=== PATIENT | male | born 1965 | race Caucasian/White ===

== ENCOUNTER → 2019-02-10 | Outpatient (CLI) | payer OTHER, SELFPAY ==
[2019-02-10 10:35] LABS: Anion Gap 9 (5-15); BUN 14 mg/dL (7-18); BUN/Creat Ratio 16.1 RATIO (10-20); Calcium,Total 8.8 mg/dL (8.5-10.1); Chloride 105 mmol/L (98-107); Cholesterol 200 mg/dL (200); Creatinine, Serum 0.87 mg/dL (0.70-1.30); EST Glomerular Filtration Rate 97 mL/min (>60); Est Glom Filt Rate - Afr Amer 117 mL/min (>60); Glucose 99 mg/dL (74-106); High Density Lipoprotein 46 mg/dL; PSA,Total - Annual Screen 0.26 ng/mL (0.00-4.00); Potassium 4.2 mmol/L (3.5-5.1); Sodium Level 140 mmol/L (136-145); Triglycerides 159 mg/dL; Very Low Density Lipoprotein 32 mg/dL (5-40)
== END | disposition home or self-care (01) ==
LOC: MFPLAB 09:19
PROVIDERS: Family Provider Family Medicine; PCP Family Medicine; Referring Provider Family Medicine; Visit Provider Family Medicine
DX: Z12.5 Encounter for screening for malignant neoplasm of prostate (principal); Z13.1 Encounter for screening for diabetes mellitus; Z13.220 Encounter for screening for lipoid disorders
CPT/HCPCS: 36415; 80048; 80061; 84153; G0103

== ENCOUNTER → 2020-02-16 08:49 | Outpatient (CLI) | payer OTHER, SELFPAY ==
--- NOTE | 2020-02-16 08:55 | RAD_ITS ---
STUDY: X-RAY - LEFT KNEE REASON FOR EXAM: Male, 54 years old. bilateral knee pain TECHNIQUE: 4 view(s) of the knee. COMPARISON: None. FINDINGS: Normal visualized distal femur. Normal visualized proximal tibia and fibula. Normal proximal tibiofibular articulation. There is severe degenerative arthrosis of the medial femorotibial compartment with severe joint space narrowing. Normal lateral femorotibial compartment. There is moderate degenerative arthrosis of the patellofemoral articulation. The soft tissue structures are unremarkable. RAD/Knee 4 or More Views IMPRESSION: Degenerative arthrosis with spur formation, degenerative changes in the left knee slightly more advanced than those in the right Electronically Signed: Quinn Sylvester MD at 17:27 EDT , Service support ,
--- NOTE | 2020-02-16 08:55 | RAD_ITS ---
STUDY: X-RAY - RIGHT KNEE REASON FOR EXAM: Male, 54 years old. Bilateral knee pain TECHNIQUE: 4 view(s) of the knee. COMPARISON: None. FINDINGS: Normal visualized distal femur. Normal visualized proximal tibia and fibula. Normal proximal tibiofibular articulation. There is moderate degenerative arthrosis of the medial femorotibial compartment with moderate joint space narrowing. Normal lateral femorotibial compartment. There is moderate degenerative arthrosis of the patellofemoral articulation. The soft tissue structures are unremarkable. RAD/Knee 4 or More Views IMPRESSION: Degenerative arthrosis with prominent spur formation. Electronically Signed: Quinn Sylvester MD at 17:25 EDT , Service support ,
[2020-02-16 10:38] LABS: Anion Gap 6 (5-15); BUN 12 mg/dL (7-18); BUN/Creat Ratio 13.8 RATIO (10-20); Calcium,Total 9.2 mg/dL (8.5-10.1); Chloride 106 mmol/L (98-107); Cholesterol 200 mg/dL (200); Creatinine, Serum 0.87 mg/dL (0.70-1.30); EST Glomerular Filtration Rate 97 mL/min (>60); Est Glom Filt Rate - Afr Amer 117 mL/min (>60); Glucose 94 mg/dL (74-106); High Density Lipoprotein 45 mg/dL; Potassium 4.3 mmol/L (3.5-5.1); Sodium Level 139 mmol/L (136-145); Triglycerides 197 mg/dL; Very Low Density Lipoprotein 39 mg/dL (5-40)
== END ==
PROVIDERS: PCP Family Medicine; Referring Provider Family Medicine; Visit Provider Family Medicine
DX: Z00.00 Encounter for general adult medical examination without abnormal findings (principal); Z13.1 Encounter for screening for diabetes mellitus; Z12.5 Encounter for screening for malignant neoplasm of prostate; Z13.220 Encounter for screening for lipoid disorders; M17.0 Bilateral primary osteoarthritis of knee
CPT/HCPCS: 36415; 73564; 80048; 80061; 84153; G0103

== ENCOUNTER → 2020-05-09 | Outpatient (CLI) | payer OTHER, SELFPAY ==
--- NOTE | 2020-05-09 07:18 | CT_ITS ---
STUDY: CT SCAN LOWER EXTREMITY LEFT REASON FOR EXAM: Male, 55 years old. VARUS DEFORMITY. [facility] PROTOCOL RADIATION DOSAGE (If Supplied By Facility): CTDIvol = ( 21.94 ) mGy, DLP = ( 1179.89 ) mGycm. Individualized dose optimization techniques were used for this CT.? TECHNIQUE: Multiple axial tomographic images of the left hip, left knee and left ankle joints were obtained for the [facility] protocol. COMPARISON: None. FINDINGS: Imaging of the hip joint demonstrates no significant abnormality. There is a marked degree of joint space narrowing involving the medial compartment of the knee joint with degenerative spur along the medial femoral condyle. A degenerative spur is also seen along the anterior aspect of the lateral femoral condyle. Degenerative spur is seen along the superior aspect of the patella. Small joint effusion. There is a 1.2 cm x 0.7 cm well-corticated bony density along the posterior aspect of the knee joint. This may represent a loose body. Imaging of the ankle joint was obtained. There is minimal degenerative changes along the medial aspect of the tibiotalar joint. CT/Extremity Lower without Contra IMPRESSION: Moderate degree of joint space narrowing involving the medial compartment knee joint as described. Finding suggest small loose body in the posterior aspect of the knee joint. Electronically Signed: Yovany Howell, at 10:01 EDT , Service support ,
== END | disposition home or self-care (01) ==
LOC: CT 07:17
PROVIDERS: PCP Family Medicine; Referring Provider Orthopaedic Surgery; Visit Provider Orthopaedic Surgery
DX: M21.162 Varus deformity, not elsewhere classified, left knee (principal); M17.12 Unilateral primary osteoarthritis, left knee
CPT/HCPCS: 73700

== ENCOUNTER 2020-05-28 15:49 | Observation (INO) | payer OTHER, SELFPAY ==
--- NOTE | 2020-05-18 08:34 | EKG12_ITS ---
Test Reason : PRE OP Blood Pressure : / mmHG Vent. Rate : 071 BPM Atrial Rate : 071 BPM P-R Int : 104 ms QRS Dur : 090 ms QT Int : 390 ms P-R-T Axes : 016 027 020 degrees QTc Int : 423 ms Sinus rhythm with short HI Otherwise normal ECG Confirmed by DAMASO BRIONES, VIVI ([id number]), slot editor MARIA DOLORES ANSARI ([id number]) on 05/21/2020 2:31:04 PM Referred By: Bruno Sexton Confirmed By:WILLIE PETIT MD
--- NOTE | 2020-05-18 08:36 | RAD_ITS ---
STUDY: X-RAY CHEST REASON FOR EXAM: Male, 55 years old. PRE OP KNEE REPLACEMENT -- NO CHEST COMPLAINTS OR PAST HISTORY TECHNIQUE: PA and lateral views of the chest. COMPARISON: None. FINDINGS: Hyperinflation. The lungs are clear. There is no demonstrated pleural abnormality. Normal size heart. Normal mediastinum and malaika. Normal visualized pulmonary arteries. Normal visualized aortic arch and descending thoracic aorta. There are diffuse degenerative changes of the visualized thoracic spine. Normal visualized ribs, clavicles, and shoulders. There is no demonstrated abnormality of the visualized soft tissue structures of the upper abdomen. RAD/Chest PA and Lateral IMPRESSION: Hyperinflation. The lungs are clear. Electronically Signed: Yovany Howell, at 15:44 EST , Service support ,
[2020-05-18 09:33] LABS: Absolute Lymphocyte Count 1.75 X10^3/uL (0.83-4.51); Absolute Neutrophil Count 2.6 X10^3/uL (2.0-7.7); Basophil# 0.05 X10^3/uL; Eosinophil# 0.19 X10^3/uL; Eosinophils% 3.7 % (0-5); Hematocrit 45.1 % (40-54); Hemoglobin 14.8 g/dL (13.0-16.5); Lymphocyte # 1.75 X10^3/ul (4.0); Lymphocyte % 34.4 % (19-41); Mean Corp Hgb Conc 32.8 g/dL (32-36); Mean Corpuscular Hgb 29.9 pg (27.0-32.0); Mean Corpuscular Volume 91.1 fL (80-94); Mean Platelet Vol. 10.6 fl (6.2-12.0); Monocyte# 0.53 X10^3/uL; Monocyte% 10.4 % (0-10); NRBC Flagged by Analyzer 0 % (0-5); Neutrophil # 2.55 X10^3/uL (2.7-7.7); Neutrophil % 50.3 % (47-70); Platelet Count 196 K/mm3 (150-450); RBC Distribution Width CV 12.3 % (11.6-14.6); RBC Distribution Width SD 40.7 fl (35.1-43.9); Red Blood Count 4.95 M/mm3 (4.6-6.2); White Blood Count 5.1 K/mm3 (4.4-11.0)
[2020-05-18 10:02] LABS: Anion Gap 5 (5-15); BUN 12 mg/dL (7-18); BUN/Creat Ratio 14.5 RATIO (10-20); Calcium,Total 8.9 mg/dL (8.5-10.1); Chloride 108 mmol/L (98-107); Creatinine, Serum 0.83 mg/dL (0.70-1.30); EST Glomerular Filtration Rate 102 mL/min (>60); Est Glom Filt Rate - Afr Amer 123 mL/min (>60); Glucose 90 mg/dL (74-106); Potassium 4.1 mmol/L (3.5-5.1); Sodium Level 138 mmol/L (136-145)
[2020-05-18 10:04] LABS: Magnesium 2.2 mg/dL (1.6-2.6)
[2020-05-28] VITALS (9 sets, daily range): BP systolic 88–108; BP diastolic 53–88; PULSE 61–86; RESP 16–18; TEMP 36.4–37.1; O2SAT 95–100; BMI 31.6; BMI 31.7
[2020-05-28] MEDS: Acetaminophen 500 MG Tablet 1000 MG PO ×2 (11:55→20:24)
[2020-05-28] MEDS: Celecoxib 200 MG Capsule 400 MG PO (11:55)
[2020-05-28] MEDS: Gabapentin 600 MG Tablet PO (11:55)
[2020-05-28] MEDS: Scopolamine 1mg/72hr Patch 1 PATCH TRANSDERM. (11:56)
[2020-05-28] MEDS: Lactated Ringers 1,000 ML 100 ML IV (12:14)
[2020-05-28 12:55] LABS: Bedside Glucose 68 mg/dL (70-110)
--- NOTE | 2020-05-28 13:30 | KNEE_PTH ---
PATIENT: NABILA MUNGUIA LEONELA LOC: MS3 U#:[id number] AGE/SX: 55/M ROOM: OK318 RE05/28/[address]: Dr. Bruno Sexton MD : 1965 BED: 1 DIS: 05/29/2020 SPEC #: [id number] RECD: 05/29/20 09:08 STATUS: CAITLYN REChace #: [id number] CASI: 05/28/20 13:[address]: Bruno Sexton DEPT: SURGICAL PATHOLOGY RECD BY: Darius Pa ENTERED: 05/29/20 09:54 SP TYPE: TOTAL KNEE OTHR DR: Dr. Armani Velasquez MD Tissues: Knee, NOS Procedures: Decalcification bone/plaque Surgery Specimen Level IV HEADER OPERATION: ERAS, total knee replacement robotic arm assist PRE-OP DIAGNOSIS: Left knee osteoarthritis TISSUE SUBMITTED: Bone and soft tissue left knee MICROSCOPIC DIAGNOSIS Bone and soft tissue of left knee, total knee resection: Severe degenerative joint disease. Loose body. Mild synovial hyperplasia. AM:kolby 06/01/20 MICROSCOPIC DESCRIPTION Slides are reviewed. GROSS DESCRIPTION Received is one container designated bone and soft tissue left knee. The specimen consists of multiple fragments of armstrong-yellow bone measuring in aggregate 12 x 12 x 4 cm. Also in the specimen container are multiple fragments of yellow-white soft tissue measuring in aggregate 7 x 6 x 3 cm. A piece of loose body is also noted measuring 2 x 1.5 x 1 cm. A number of bony fragments contain articular surfaces consistent with tibial plateau and femoral condyle and displaying prominent osteophyte formation, eburnation, and bone erosion. Powderer sections are submitted in two cassettes as follows: 1 - soft tissue, 2 - bone after decalcification. Cassette 2 also contains the section of the loose body. / SJ:kolby 05/29/20 TC:5 CPT: 80163, 52378
[2020-05-28] MEDS: Cefazolin 2 GM in 0.9% Normal Saline 100 ML IV (13:32)
[2020-05-28] MEDS: dexAMETHasone 10 MG/ML Vial IV (13:44)
[2020-05-28] MEDS: Lactated Ringers 1,000 ML 125 ML IV ×2 (15:00→20:23)
--- NOTE | 2020-05-28 15:51 | RAD_ITS ---
STUDY: X-RAY - LEFT KNEE REASON FOR EXAM: Male, 55 years old. Postop left total knee replacement. TECHNIQUE: 2 view(s) of the knee. COMPARISON: Left knee, 02/16/2020. FINDINGS: There is a total knee replacement. The prosthetic components are intact and articulate normally with each other. There is no evidence of loosening from the underlying bone. There is no evidence of osseous fracture or destructive osseous pathology. There is air and swelling in the anterior soft tissues with midline skin clips. RAD/Knee 1 or 2 Views IMPRESSION: Status post left total knee arthroplasty. Electronically Signed: Pino Wei DO at 20:53 EST Tel [phone], Service support ,
--- NOTE | 2020-05-28 16:10 | PRO.PCM_ITS ---
Procedure Report Date of Procedure: 05/28/20 Preoperative diagnosis: Left knee severe posttraumatic arthritis Postoperative diagnosis: Same Title of procedure : Left total knee replacement, press fit ROBBY Surgeon: Bruno Sexton MD Engineering Vice President: Carmen Meade PA-C , Vanessa CHE Anesthesia: Spinal adductor canal nerve block Anesthesiologist:Dr. Rodriguez / KAJAL Special medications: Ancef, tranexamic acid Complications: None EBL: 50 Indications for surgery: Patient is a [55-year-old [male] with a history of knee arthritis appropriately treated and failed conservative measures and wished to proceed with total knee replacement. Patient was cleared for surgery by the medical doctor and has been evaluated by the anesthesia staff Findings: Intraoperative findings showed severe arthritis of the knee. Patient underwent knee replacement using [employer] press-fit total knee components Robby robotic assisted. Size [6] femur, size [6] tibia, [35 x 10] asymmetric X3 patella, size [6 ,11 CS] X3 tibial polyethylene insert, knee was nicely balanced. Patella tracked well. Patient underwent standard wound closure in layers. Vicryl and strata fix sutures utilized followed by skin criselda. administrative library assistant, physician assistant laboratory director, was utilized throughout the entire procedure. They were vital in helping with patient positioning, holding of retractors, exposing the tissues adequately for safe completion of the procedure including cutting of the bone, helping county judge appropriate alignment and sizing of the components, implantation of the components, as well as wound closure, bandage application, and safe patient transfer. Without neurosurgical nurse practitioner, physician assistant laboratory director, surgical time would have been significantly increased, and surgical outcome could have been less optimal. Description of procedure: The patient was taken to the OR, transferred to the OR table. They were given a spinal anesthetic. Ancef was given IV preoperatively. Tranexamic acid was given IV preoperatively. Well-padded tourniquet was applied to the upper thigh of the operative leg. Nonoperative leg had a SYLVAIN hose and SCD on throughout. Operative limb was prepped padded and draped in usual orthopedic sterile fashion for the procedure. We began by injecting the pain relieving solution in the anterior superior aspect of the knee region. The limb was exsanguinated, and the tourniquet was applied to 250 mmHg. Made a midline incision through skin, subcutaneous tissue, bringing down us on the extensor mechanism. Medial parapatellar arthrotomy was carried out. Straw-colored joint fluid was evacuated. We raised a sleeve of tissue off the upper medial tibia. Resected some of the infrapatellar fat pad. We remove degenerative medial and lateral meniscus. Removed bone spurs from about the patella. We removed tissue off the anterior aspect of the distal femur. Patella was translated laterally and/or everted as needed throughout the procedure. ACL was resected. PCL was preserved. Collateral ligaments were preserved. Physician placed the retractors and assistant laboratory director held retractors protecting above ligaments throughout the procedure. Patella was everted. Measured. Appropriate resection was carried out leaving us between a 13 and 15 mm thick patella. Metal plate was applied. Pins were placed in the femur and tibia at appropriate locations being bicortical. Check pin was placed in the distal femur and upper tibia at appropriate location. [place] robot was appropriately prepared femur then tibia. Knee was appropriately stressed in 90 degrees of flexion as well as in extension. Robot was appropriately manipulated to allow for approximately 19 to 21 mm of flexion and extension gap. Good sizing and alignment of components was noted on computer. Robotic cuts were carried out cutting the upper tibia first, followed by femoral cuts. Engineering Vice President help with retraction and protecting soft tissues throughout. Bone fragments were removed. we then sized off the upper tibia with the help of the assistant laboratory director. We then checked flexion extension gaps finding them to be adequate and equal. Tibial trial with plastic insert was inserted. Next the distal femoral trial was applied. Tibial tray was allowed to freefloat with a 9 mm insert. Knee was flexed and extended an external align ment guide is utilized. Tibial trial was pinned in place. Drill holes were placed into the distal femoral trial and it was removed. Punch was used on the upper tibial component and that was removed. The sclerotic bone was softened with a sharp pin. Bone spurs had been removed from the posterior medial and posterior lateral aspect of the femur while the assistant laboratory director lifted up on the distal femur and exposed each compartment. Patella was everted and measured. Patella was sized. Clamp was utilized. 3 drill holes were placed through the clamp held by the assistant laboratory director. Trial patella was placed and removed. Bleeding was controlled at the back of the knee with the bovey. Posterior knee soft tissues were carefully injected with pain relieving solution. Components were checked and open. . The bony surfaces cleaned and dried. Tibia, femur, patella press-fit into position. Tibial insert was placed just before placing the femur. Engineering Vice President held retractors exposing the bony surfaces of the tibia and femur which were hammered in position. Patella clamped into position.balancing was again checked with the computer. Checkpoints and femoral and tibial pins removed. we thoroughly irrigated and debrided the knee. Bleeding controlled with the Bovie. Knee was again thoroughly irrigated. Irresept solution utilized. Patella noted to track nicely. We repaired the arthrotomy with a combination of #1 Vicryl and #2 strata fix. We did a mid layer of 1 Vicryl and #0 strata fix running. Criselda were utilized on the incision as well as pin sites. Mepilex dressing applied. SYLVAIN hose and SCDs applied. Patient was awoken from their anesthetic, transferred back to their own bed and recovery room in satisfactory condition. Second dose of IV Tranexamic acid was given while closing wound. Patient was admitted, appropriate IV antibiotic to be utilized as well as medication for DVT prevention. Hopeful discharge tomorrow. Physical therapy will be consulted. Ancef was used 2 g IV preoperatively. Xarelto will be used for DVT prevention 10 mg daily This note was generated with Octmami dictation software. It may contain incorrect words, spelling, and punctuation that were not noted in checking the note before signing.
[2020-05-28] MEDS: Cefazolin 1 GM/50 ML BAG IV (22:33)
[2020-05-28] MEDS: Senna/Docusate Sodium 1 Tablet 2 TABLET PO (22:33)
[2020-05-29 02:41] VITALS: BP 102/66; PULSE 93; RESP 18; TEMP 36.4; O2SAT 95
[2020-05-29] MEDS: oxyCODONE 5 MG Tablet PO ×3 (02:42→11:29)
[2020-05-29] MEDS: Acetaminophen 500 MG Tablet 1000 MG PO ×2 (02:59→11:28)
[2020-05-29 06:03] LABS: Hematocrit 39.7 % (40-54); Hemoglobin 13.2 g/dL (13.0-16.5); Mean Corp Hgb Conc 33.2 g/dL (32-36); Mean Corpuscular Hgb 30.3 pg (27.0-32.0); Mean Corpuscular Volume 91.1 fL (80-94); Platelet Count 197 K/mm3 (150-450); Red Blood Count 4.36 M/mm3 (4.6-6.2); White Blood Count 14.2 K/mm3 (4.4-11.0)
[2020-05-29 06:20] VITALS: BP 99/58; PULSE 72; RESP 16; TEMP 36.4; O2SAT 96
[2020-05-29] MEDS: Cefazolin 1 GM/50 ML BAG IV (06:25)
[2020-05-29] MEDS: Rivaroxaban 10 MG Tablet PO (06:25)
--- NOTE | 2020-05-29 07:01 | PCM.PN.ORT ---
Subjective: Patient is postoperative day #1 from left total knee replacement. He is feeling okay. He states his pain is 5 or 6 out of 10. He feels it is tolerable. He has recently taken a pain pill. He denies chest pain or shortness of breath. No productive cough. Denies calf pain. He is planning on discharge to home later today after therapy. Objective: Patient is speaking easily in normal sentences. His left knee bandages on clean and dry. Adhesive bandage has no blood obvious. His knee motion is 0-60 degrees. On the left. Full range of motion on the right. No calf pain or swelling bilaterally. Negative Homans' sign bilaterally. He is able to do a straight leg raise bilaterally. He has good active plantar flexion dorsiflexion toes and ankles. Distal pulses are intact. Normal sensation. Clinically left knee is well aligned and stable. Laboratory work and vital signs reviewed X-rays of the left knee reviewed showing a press-fit total knee replacement in good position without obvious loosening failure or fracture. Good alignment of the left knee. - Physical Exam Vitals/I&O's: Vital Signs Temp Pulse Resp BP Pulse Ox 97.6 F L 72 16 99/58 L 96 05/29/20 06:20 05/29/20 06:20 05/29/20 06:20 05/29/20 06:20 05/29/20 06:20 Oxygen Flow Rate (L/min) 6 Oxygen Delivery Method Room Air Weight: 108.7 kg Body Mass Index (BMI) 31.7 Intake and Output for Last 24 Hours 05/27/20 05/28/20 05/29/20 23:59 23:59 23:59 Intake Total 3630.25 / 3630.25 1406.67 / 1406.67 Output Total 400 / 400 600 / 600 Balance 3230.25 / 3230.25 806.67 / 806.67 Laboratory Results 05/28/20 11:52: POC Glucose 68 L 05/29/20 05:10: WBC 14.2 H, RBC 4.36 L, Hgb 13.2, Hct 39.7 L, MCV 91.1, MCH 30.3, MCHC 33.2, RDW Std Deviation 40.0, RDW Coeff of Memo 12.0, Plt Count 197, MPV 11.0 Current Medications Acetaminophen (Acetaminophen 500 Mg Tablet) 1,000 mg PO Q8H [facility] Last Admin: 05/29/20 02:59 Dose: 1,000 mg Documented by: Dexamethasone Sodium Phosphate (Dexamethasone 10 Mg/Ml Vial) 10 mg IV X1 ONE Stop: 05/29/20 08:01 Sodium Chloride () 250 mls @ 15 mls/hr IV .[id number] PRN PRN Reason: Saline Flush Sodium Chloride () 250 mls @ 15 mls/hr IV .[id number] PRN PRN Reason: Additional IVPB Infusion Morphine Sulfate (Morphine 2 Mg/Ml Syringe) 2 - 4 mg IV Q2H PRN PRN PRN Reason: Pain Score 6-10 Ondansetron HCl (Ondansetron 4 Mg/2 Ml Vial) 4 mg IV Q8H PRN PRN PRN Reason: NAUSEA Oxycodone HCl (Oxycodone 5 Mg Tablet) 5 - 10 mg PO Q4H PRN PRN PRN Reason: Pain Score 4-10 Last Admin: 05/29/20 06:33 Dose: 10 mg Documented by: Rivaroxaban (Rivaroxaban 10 Mg Tablet) 10 mg PO DAILY@0600 [facility] Last Admin: 05/29/20 06:25 Dose: 10 mg Documented by: Senna/Docusate Sodium (Senna/Docusate Sodium 1 Tablet) 2 tablet PO BID [facility] Last Admin: 05/28/20 22:33 Dose: 2 tablet Documented by: Sodium Chloride (0.9% Saline Lock 10 Ml Syringe) 10 - 40 ml IV UD PRN PRN Reason: SALINE FLUSH Medical Necessity - Tobacco Use Smoking Status: Never smoker Tobacco Use: Non-smoker Assessment/Plan His diagnosis and treatment options regarding his left knee replacement discussed with him at length. Recommended upright position and incentive spirometer use. Recommended ice to the left knee. Left knee range of motion multiple times a day. Full weightbearing. Continue with oxycodone and Tylenol for pain. Prescription appropriate for his knee replacement will be given. Continue Xarelto for a total of 1 week for DVT prevention followed by aspirin 81 mg twice a day for 3 weeks stool softener as needed to prevent constipation. Therapy as needed. Follow-up in the office as scheduled. Procedures: Left total knee replacement
[2020-05-29] MEDS: 0.9% Saline Lock 10 ML Syringe IV ×2 (07:05→08:43)
--- NOTE | 2020-05-29 07:17 | DCINST_ITS ---
Discharge Diet: No Restrictions Discharge Activity: May Not Drive, May not drive while taking narcotic pain medications., Use Walker May shower in (days): 2 - Okay to shower over adhesive bandage Ice area for (Minutes): 20 - Ice area for 20 minutes each hour while awake Weight Bearing Status: Weight bearing as tolerated Keep extremity elevated above heart level: Operative Extremity Call your doctor if your incision/area has: Continuous Slow Oozing, Sudden Increased Bleeding, Increased Pain/ Swelling, Increased Redness, Foul Smelling Discharge Call your doctor if you observe: Fever of 101 or Higher, Coldness, Increased Pain, Numbness or Tingling, Change in Color, Inability to have a bowel movement, Shortness of breath, Chest pain, Calf discomfort, Uncontrolled pain Remove Dressing in (days):: 5 Cleanse incision/area with: Soap & Water Additional Dressing/Incision Instructions:: See with the [facility] discharge instruction sheet Allergies/Adverse Reactions: Allergies No Known Allergies Allergy (Verified 05/14/20 08:18) Medications to take at Discharge Acetaminophen [Tylenol] 1,000 mg PO Q8H #60 tab 05/29/20 Oxycodone [Oxyir] 5 - 10 mg PO Q4H PRN PRN 7 Days #56 tab 05/29/20 Rivaroxaban [Xarelto] 10 mg PO DAILY@0600 #6 tab 05/29/20 Senna/Docusate Sodium [Senokot-S] 2 tab PO BID #30 tab 05/29/20 The following prescriptions were given: Oxycodone [Oxyir] 5 - 10 mg PO Q4H PRN PRN 7 Days #56 tab PRN Reason: Pain Score 4-10 Prescription Printed Senna/Docusate Sodium [Senokot-S] 2 tab PO BID #30 tab Prescription Printed Acetaminophen [Tylenol] 1,000 mg PO Q8H #60 tab Prescription Printed Rivaroxaban [Xarelto] 10 mg PO DAILY@0600 #6 tab Prescription Printed Primary Care Physician: Evelio Velasquez MD [Primary Care Provider] - Test Results: Test results from this visit will be discussed in further detail at your follow- up appointment, if applicable.
[2020-05-29 08:39] VITALS: BP 103/49; PULSE 86; RESP 18; TEMP 36.6; O2SAT 97
[2020-05-29] MEDS: Senna/Docusate Sodium 1 Tablet 2 TABLET PO (08:43)
[2020-05-29] MEDS: dexAMETHasone 10 MG/ML Vial IV (08:43)
--- NOTE | 2020-05-29 10:10 | CASEMGMT ---
LAURA ORTEGA Face to Face with patient for initial transition planning/care coordination assessment. RN CM introduced self and role at [facility]. Patient sitting in chair, alert and oriented. Patient willing to participate in assessment and is able to answer all questions appropriately. Care providers, pharmacy, and demographics verified. Patient wishes to discharge home and is setup with [facility] for outpatient therapy. Patient states he has no further needs or concerns at this time. CM to follow for discharge planning needs that may arise. PCP: Ron Specialists: Bruno Sexton [facility]erred [facility]acy: [facility] but would like [facility] retail at discharge. Insurance: MMO Prescription Benefit: yes Living Will/HPOA: yes, Abigail Aguilera LNOK: Living Arrangements: Patient lives with in a single story home with 3 steps and railing to enter the home. Patient states he was independent at home prior to surgery. Transportation: DME/C: Patient states he has walker at home. Patient is scheduled for outpatient therapy at [facility] on the at 830am. Disposition Plan: Patient to discharge home with outpatient therapy, family support, and follow-up plans in place. Cindy ALLEN, RN, CM
[2020-05-29 10:20] VITALS: PULSE 60
--- NOTE | 2020-05-29 11:33 | PHA.DC.MC ---
Pharmacy Service has performed discharge medication reconciliation and counseling for this patient. 1. ACETAMINOPHEN 1000MG PO Q8H 2. OXYCODONE 5-10MG PO Q4H PRN PAIN 4-10 X 7 DAYS 3. RIVAROXABAN 10MG PO DAILY X 6 DAYS 4. SENNA/DOCUSATE 2T PO BID The patient's discharge medication list was reviewed for discrepancies and discrepancies were resolved. Home Medications Acetaminophen [Tylenol] 1,000 mg PO Q8H #60 tab 05/29/20 Oxycodone [Oxyir] 5 - 10 mg PO Q4H PRN PRN 7 Days #56 tab 05/29/20 Rivaroxaban [Xarelto] 10 mg PO DAILY@0600 #6 tab 05/29/20 Senna/Docusate Sodium [Senokot-S] 2 tab PO BID #30 tab 05/29/20 The patient was counseled on the following discharge medications and changes in medications for homegoing were reviewed. The Reason for Use, instructions for use, and potential side effects were reviewed for all new medications. The patient's questions regarding all of their medications were answered. The patient was able to verbally demonstrate an understanding of their discharge medications.
[2020-05-29 14:30] VITALS: BP 118/73; PULSE 87; RESP 18; TEMP 36.7; O2SAT 97
== END 2020-05-29 15:22 | disposition home or self-care (01) ==
LOC: SDC 16:02 → MS3 05-29 08:02
PROVIDERS: Anesthesiology; Admitting Provider Orthopaedic Surgery; PCP Family Medicine; Referring Provider Orthopaedic Surgery; Visit Provider Orthopaedic Surgery
PROC: 0SRD0JZ Replacement of Left Knee Joint with Synthetic Substitute, Open Approach (ICD-10-PCS; CPT 27447; principal; 2020-05-28 13:10)
DX: M17.12 Unilateral primary osteoarthritis, left knee (principal); Z20.828 Contact with and (suspected) exposure to other viral communicable diseases; E66.9 Obesity, unspecified
CPT/HCPCS: 01400; 27447; 64447; S2900; 36415; 71046; 73560; 80048; 82962; 83735; 85025; 85027; 87081; 87426; 88305; 88311; 93005; 96361; 96365; 96366; 96375; 97110; 97162; 97166; 97530; 97535; 99218; C1776; C9803; J7120; A4216; G0378; G0379; J2405

== ENCOUNTER 2024-05-23 15:33 | Emergency (ER) | payer OTHER, SELFPAY ==
[2024-05-23 15:35] VITALS: BP 160/87; PULSE 108; RESP 16; TEMP 36.4; O2SAT 99; BMI 34.0
[2024-05-23 16:56] VITALS: BP 134/74; PULSE 87; RESP 16; TEMP 36.1; O2SAT 99
== END 2024-05-23 16:58 | disposition home or self-care (01) ==
PROVIDERS: Emergency Provider Emergency Medicine; PCP Family Medicine; Visit Provider Emergency Medicine
DX: S43.51XA Sprain of right acromioclavicular joint, initial encounter (principal); M19.011 Primary osteoarthritis, right shoulder; W22.01XA Walked into wall, initial encounter
CPT/HCPCS: 73030; 99282

== ENCOUNTER → 2024-05-30 | Outpatient (CLI) | payer OTHER, SELFPAY ==
--- NOTE | 2024-05-30 07:50 | CT_ITS ---
CT RIGHT LOWER EXTREMITY WITH 3-D IMAGING CLINICAL INDICATION: PAIN IN RIGHT KNEE.[facility] protocol. TECHNIQUE: Axial CT images of the RIGHT lower extremity was performed without IV contrast material. Coronal and sagittal reformats were provided. The protocol utilizes one or more of the following dose reduction techniques: automated exposure control, adjustment of mA and/or kV according to patient size,and/or use of iterative reconstruction technique. RADIATION DOSAGE (If Supplied By Facility): CTDIvol = ( 18.76 ) mGy, DLP = ( 1511.24 ) mGycm COMPARISON: No relevant prior comparison study available FINDINGS: Bones: Imaging of the right hip joint was obtained. There is a mild degree of the joint space narrowing of the right hip joint. Mild degree of subchondral sclerosis in the right femoral head. Imaging of the right knee joint was obtained. There is a marked degree of joint space narrowing with bony spur along the medial and lateral distal femoral condyles. Moderate degree of joint space narrowing of the femoral patellar joint with evidence of a large bony spurs. Tiny well-corticated bony fragments are seen along the posterior aspect of the knee joint in the popliteal region suggestive of joint space. Imaging of the ankle joint was obtained. No significant abnormality is seen. Soft Tissues: The deep soft tissue structures are unremarkable. The superficial soft tissues are unremarkable without evidence of edema, hematoma, or foreign body. CT/Extremity Lower without Contra IMPRESSION: Marked degree of joint space narrowing involving the medial compartment of knee joint as well as moderate degree of joint space narrowing and spur formation of the patellofemoral joint. Electronically Signed: Yovany Howell MD at 14:20 EST ,
== END | disposition home or self-care (01) ==
LOC: CT 07:45
PROVIDERS: PCP Family Medicine; Referring Provider Orthopaedic Surgery; Visit Provider Orthopaedic Surgery
DX: M17.31 Unilateral post-traumatic osteoarthritis, right knee (principal); M25.561 Pain in right knee
CPT/HCPCS: 73700

== ENCOUNTER 2024-07-28 14:14 | Observation (INO) | payer OTHER, SELFPAY ==
--- NOTE | 2024-07-12 06:40 | RAD_ITS ---
STUDY: X-RAY CHEST REASON FOR EXAM: Male, 59 years old. PREOP TECHNIQUE: PA and lateral views of the chest. COMPARISON: 05/18/2020 FINDINGS: The lungs are clear and expanded. There is no demonstrated pleural abnormality. Normal size heart. Normal mediastinum and malaika. Normal visualized pulmonary arteries. Normal visualized aortic arch and descending thoracic aorta. Normal visualized thoracic spine. Normal visualized ribs, clavicles, and shoulders. There is no demonstrated abnormality of the visualized soft tissue structures of the upper abdomen. RAD/Chest PA and Lateral IMPRESSION: Normal x-ray examination of the chest. Electronically Signed: Dario Richardson MD at 17:20 EST ,
--- NOTE | 2024-07-12 06:44 | EKG12_ITS ---
Test Reason : PRE OP Blood Pressure : */* mmHG Vent. Rate : 73 BPM Atrial Rate : 73 BPM P-R Int : 120 ms QRS Dur : 90 ms QT Int : 372 ms P-R-T Axes : 21 22 21 degrees QTcB Int : 409 ms Normal sinus rhythm Normal ECG When compared with ECG of 18-May-2020 08:54, No significant change was found Confirmed by KAREN BRIONES, SUNNI ([id number]), story editor SAMMIE GOLDSTEIN ([id number]) on 07/12/2024 9:16:21 AM Referred By: Bruno Sexton Confirmed By: SUNNI JONES MD
[2024-07-12 07:27] LABS: Hematocrit 43.7 % (40-54); Hemoglobin 14.9 g/dL (13.0-16.5); Mean Corp Hgb Conc 34.1 g/dL (32-36); Mean Corpuscular Volume 87.9 fL (80-94); Mean Platelet Vol. 10.5 fl (6.2-12.0); Platelet Count 187 K/mm3 (150-450); RBC Distribution Width CV 12.2 % (11.6-14.6); RBC Distribution Width SD 39.3 fl (35.1-43.9); Red Blood Count 4.97 M/mm3 (4.6-6.2); White Blood Count 5.3 K/mm3 (4.4-11.0)
[2024-07-12 08:15] LABS: Anion Gap 7 (5-15); BUN 12 mg/dL (7-18); BUN/Creat Ratio 14.1 RATIO (10-20); Calcium,Total 8.8 mg/dL (8.5-10.1); Chloride 105 mmol/L (98-107); Creatinine, Serum 0.85 mg/dL (0.70-1.30); EST Glomerular Filtration Rate 97 mL/min (>60); Est Glom Filt Rate - Afr Amer 118 mL/min (>60); Glucose 103 mg/dL (74-106); Magnesium 2.2 mg/dL (1.6-2.6); Potassium 4.3 mmol/L (3.5-5.1); Sodium Level 137 mmol/L (136-145)
[2024-07-28] VITALS (12 sets, daily range): BP systolic 109–144; BP diastolic 65–83; PULSE 68–92; RESP 16–18; TEMP 36.1–36.9; O2SAT 94–100; BMI 33.0
--- NOTE | 2024-07-28 11:40 | PCM.PRE.AN2 ---
ASA Classification* ASA Classification ASA Classification: 2 Assessment & Plan Anesthesia* Anesthesia Assessment Anesthesia Assessment: Discussed sedation and/or anesthesia options, risks, benefits, and alternatives with patient/parents/legal guardian/POA. Questions invited. The patient/parents/legal guardian/POA seems to understand and agrees to proceed with anesthesia plan. Reviewed the physical assessment, medical history, allergy history and patient home medications list prior to surgery/procedure/anesthetic and documented any changes. Performed airway and anesthesia risk assessments. Anesthesia Type Anesthesia Type: Spinal and Block Anesthesia Focused Assessment* Airway Assessment Mouth opens: >3 cm Mallampati Score: II Focused Labs Anesthesia Preop lab: CBC WBC 5.3 K/mm3 (4.4-11.0) 07/12/24 06:58 RBC 4.97 M/mm3 (4.6-6.2) 07/12/24 06:58 Hgb 14.9 g/dL (13.0-16.5) 07/12/24 06:58 Hct 43.7 % (40-54) 07/12/24 06:58 Plt Count 187 K/mm3 (150-450) 07/12/24 06:58 CHEMISTRY Potassium 4.3 mmol/L (3.5-5.1) 07/12/24 06:58 Sodium 137 mmol/L (136-145) 07/12/24 06:58 Magnesium 2.2 mg/dL (1.6-2.6) 07/12/24 06:58 BUN 12 mg/dL (7-18) 07/12/24 06:58 Creatinine 0.85 mg/dL (0.70-1.30) 07/12/24 06:58 Glucose 103 mg/dL (74-106) 07/12/24 06:58 POC Glucose 68 mg/dL (70-110) L 05/28/20 11:52 COAG Pre-Assessment Diagnosis/Proposed Procedure Planned Operative Procedure(s): (R) Total Knee Replacement Anesthesia History 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 When Was Last Pacemaker Check QUESTION #4 FULL TEXT: You/Your Family Experience fever (hyperthermia) with Anesthesia Last Oral Intake Last Oral intake: Last Oral Intake NPO since Meds taken in AM with sips of water? Meds patient instructed to take am of surgery PONV PONV - farm truck driver: PONV - farm truck driver Female No 07/04/24 11:48 HX of Motion Sickness No 07/04/24 11:48 HX of N/V After Surgery No 07/04/24 11:48 Non-Smoker Yes 07/04/24 11:48 Duration of Surgery greater Yes 07/04/24 11:48 than 60 minutes Number of Risk Factors 2 07/04/24 11:48 PONV Score Moderate Risk 07/04/24 11:48 Height & Weight Height & Weight: Anesthesia: Height & Weight Height 6 ft 05/23/24 15:35 Respiratory Assessment Respiratory Assessment - farm truck driver: Respiratory Tract Infection Hx - farm truck driver Hx Respiratory Tract Infection No 07/04/24 11:48 STOP Sleep Apnea STOP Sleep Apnea - farm truck driver: STOP Sleep Apnea - farm truck driver Hx Hypertension No 07/04/24 11:48 Hx Sleep Apnea No 07/04/24 11:48 CPAP BIPAP Do you snore loudly (louder Yes 07/04/24 11:48 than talking or can be heard Do you often feel tired/ No 07/04/24 11:48 fatigued/ sleepy during daytime? Has anyone observed you stop No 07/04/24 11:48 breathing during sleep? STOP Results Negative 07/04/24 11:48 QUESTION #5 FULL TEXT : Do you snore loudly (louder than talking or can be heard through closed doors)? 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 Specify any problems Hx of Preganancy in last 3 N/A 07/04/24 11:48 Months Nurse Filling Out Transfusion MGRIFFITH 07/04/24 11:48 & Questions: Date: 07/04/24 07/04/24 11:48 Time: 11:50 07/04/24 11:48 Patient unable to answer at this time (ie. confused, unrespo /Reproduction History /Reproductive History - farm truck driver: /Reproductive Hx- farm truck driver Hx Now Gestational Age (in weeks): EDC: Hx Hx Para Hx Section SAB Active Medications Active Medications: Current Medications Generic Name Dose Route Start Last Admin Trade Name Freq PRN Reason Stop Dose Admin Acetaminophen 1,000 mg 07/28/24 13:30 Acetaminophen 500 Mg Tablet PO 07/28/24 13:31 X1 ONE Celecoxib 400 mg 07/28/24 13:30 Celecoxib 200 Mg Capsule PO 07/28/24 13:31 X1 ONE Sodium Chloride 77.4 ml/ 0 ml 07/28/24 13:30 Ropivacaine 200 mg/ OPERA.SITE 07/28/24 13:31 Epinephrine HCl 0.6 mg/ X1 ONE Ketorolac Tromethamine 30 mg/ Morphine Sulfate 5 mg Dexamethasone Sodium Phosphate 10 mg 07/28/24 13:30 Dexamethasone 10 Mg/Ml Vial IV 07/28/24 13:31 X1 ONE Gabapentin 600 mg 07/28/24 13:30 Gabapentin 600 Mg Tablet PO 07/28/24 13:31 X1 ONE Tranexamic Acid 1,000 mg/ 110 mls @ 660 mls/hr 07/28/24 13:30 Sodium Chloride IV 07/28/24 13:39 X1 ONE Tranexamic Acid 1,000 mg/ 110 mls @ 660 mls/hr 07/28/24 14:30 Sodium Chloride IV 07/28/24 14:39 X1 ONE Magnesium Sulfate 1 gm/ 102 mls @ 408 mls/hr 07/28/24 13:30 Dextrose IV 07/28/24 13:44 X1 ONE Cefazolin Sodium 2 gm/ N/A 20 mls @ 400 mls/hr 07/28/24 13:30 IV 07/28/24 13:32 PREOP ONE Sodium Chloride 1,000 mls @ 15 mls/hr 07/28/24 11:25 IV 08/03/24 00:44 .Q48H [facility] Protocol Insulin Human Lispro 1 - 6 unit 07/28/24 13:30 Insulin Lispro 100 Unit/Ml Insuln.Pen SC 07/28/24 19:30 Q4H PRN PRN BG>/= 180, SEE PROTOCOL Protocol PFSH Medical History Alcohol use Arthritis Heartburn Shortness of breath on exertion Non-smoker History of stress test Home Medications ?Medication ?Instructions ?Recorded ?Last Taken ?Type SIMPLY FRUIT 2 cap PO DAILY 07/04/24 Unknown History SIMPLY VEGETABLE 2 cap PO DAILY 07/04/24 Unknown History acetaminophen 500 mg tablet 1,000 mg PO Q8H PRN pain 07/04/24 Unknown History ibuprofen 400 mg tablet (IBU) 400 mg PO Q8H PRN pain 07/04/24 Unknown History Allergy/AdvReac Type Severity Reaction Status Date / Time amoxicillin Allergy Mild Hives Verified 07/04/24 11:43 bacitracin (From Neosporin Allergy Itching Verified 07/04/24 11:57 ([id number])) neomycin (From Neosporin Allergy Itching Verified 07/04/24 11:57 ([id number])) polymyxin B (From Neosporin Allergy Itching Verified 07/04/24 11:57 ([id number])) Surgical History History of surgical removal of ganglion cyst History of total left knee replacement (TKR) Hx of appendectomy Social History Smoking Status: Never smoker alcohol intake: current alcohol intake frequency: a few times a month Alcohol type: beer Review of Systems (Anesthesia) ROS Narrative System reviewed and no additional complaints, except as documented.
[2024-07-28] MEDS: Magnesium 1 GM over 15 mins IV (12:36)
[2024-07-28] MEDS: 0.9% Normal Saline (1000mL) 1,000 ML 15 ML IV (12:37)
[2024-07-28] MEDS: Acetaminophen 500 MG Tablet 1000 MG PO ×2 (12:38→21:57)
[2024-07-28] MEDS: Celecoxib 200 MG Capsule 400 MG PO (12:38)
[2024-07-28] MEDS: Gabapentin 600 MG Tablet PO (12:38)
--- NOTE | 2024-07-28 13:30 | KNEE_PTH ---
PATIENT: NABILA MUNGUIA LOC: MS3 U#:[id number] AGE/SX: 59/M [place] [facility] [place]: Dr. Bruno Sexton MD : 1965 BED: 1 DIS: 07/29/2024 SPEC #: [id number] RECD: 07/28/24 17:43 STATUS: CAITLYN REChace #: [id number] CASI: 07/28/24 13:[address]: Bruno Sexton DEPT: SURGICAL PATHOLOGY RECD BY: Darius Pa ENTERED: 07/29/24 07:10 SP TYPE: TOTAL KNEE OTHR DR: Dr. Armani Velasquez MD Tissues: Knee, NOS Procedures: Decalcification bone/plaque Surgery Specimen Level IV HEADER OPERATION: Right total knee replacement PRE-OP DIAGNOSIS: Right knee grade IV posttraumatic arthritis TISSUE SUBMITTED: Right knee bone and tissue MICROSCOPIC DIAGNOSIS Bone and soft tissue, right knee, total knee replacement/resection: Bone and overlying cartilage showing changes consistent with degenerative joint disease. PW.mr 08/03/2024 MICROSCOPIC DESCRIPTION Slides are reviewed. GROSS DESCRIPTION Received is one container designated bone and soft tissue right knee. The specimen consists of multiple fragments of armstrong-yellow bone measuring in aggregate 11 x 11 x 4 cm. No soft tissue is identified. A number of bony fragments contain articular surfaces consistent with tibial plateau and femoral condyle and displaying prominent osteophyte formation, eburnation and bone erosion. Multi Craft Maintenance Technician sections are submitted in one cassette after decalcification. / EMILEE.mr 07/29/2024 TC:5 CPT: 34162, 91811
[2024-07-28 14:30] LABS: Bedside Glucose 62 mg/dL (74-106)
[2024-07-28] MEDS: Cefazolin 2 GM in Syringe IV (14:30)
[2024-07-28] MEDS: TXA 1000mg in NS100 100ml (IVPB at Incision) 660 MG IV (14:33)
[2024-07-28] MEDS: dexAMETHasone 10 MG/ML Vial IV (14:35)
--- NOTE | 2024-07-28 15:57 | OP.PCM_ITS ---
Problems Associated Problem List Diagnoses (1) Post-traumatic osteoarthritis of right knee: Operative Report (Standard) Operative Information Date of Procedure: 07/28/24 Pre-Operative Diagnosis: Right knee severe posttraumatic arthritis Post-Operative Diagnosis: Same Surgery/Procedure Performed: Right total knee replacement cottage attendant: Yes Commodity Supervisor: Carmen Meade Tasks completed by web assistant: Closing, Implanting device and Retracting Additional home care assistant?: No Type of Anesthesia: Block,Regional and Spinal RN Documented Start/Stop Times: Operation Date: 07/28/24 13:30 Case Time Into Pre-Op 07/28/24 11:22 Out of Pre-Op 07/28/24 14:29 Anesthesia Start 07/28/24 14:30 Into Room 07/28/24 14:30 Procedure Start 07/28/24 14:48 Procedure Start Time: 14:48 Procedure Stop Time: 16:00 Select all DRAINS/GRAFTS/IMPLANTS that apply: None Estimated Blood Loss: 50 Specimen collected: Yes Description of specimen(s) removed: Bone and soft tissue right knee Description of surgery: Preoperative diagnosis: Right knee severe post traumatic arthritis Post op diagnosis: Same Title of procedure : Right total knee replacement, press fit Surgeon: Bruno Sexton MD Nursery School Teacher: Carmen Meade PA-C Anesthesia: Spinal, adductor canal nerve block Anesthesiologist: / KAJAL EBL: 50 Fluid in: 1200 Special medications: Ancef 2 g IV, tranexamic acid 1 g IV x 2, joint pain injection cocktail, ropivacaine, epinephrine, Duramorph, Toradol Indications for surgery: Patient is a [59]-year-old [male] with a history of knee posttraumatic arthritis appropriately treated and failed conservative measures and wished to proceed with total knee replacement. Patient was cleared for surgery by the medical doctor and has been evaluated by the anesthesia staff Findings: Intraoperative findings showed severe arthritis of the knee. Patient underwent knee replacement using [email or web address] press-fit total knee components. 1 custom cutting guide system utilized. Size [6] femur, size [7] tibia, [29 x 9] asymmetric X3 patella, size [7-13 mm CS] X3 tibial polyet hylene insert, knee was nicely balanced. Patella tracked well. Patient underwent standard wound closure in layers. Vicryl and strata fix sutures utilized, followed by criselda. resident care assistant, physician home care assistant, was utilized throughout the entire procedure. They were vital in helping with patient positioning, holding of retractors, exposing the tissues adequately for safe completion of the procedure including cutting of the bone, helping insurance agents supervisor appropriate alignment and sizing of the components, implantation of the components, as well as wound closure, bandage application, and safe patient transfer. Without surgical supervisor, physician home care assistant, surgical time would have been significantly increased, and surgical outcome could have been less optimal. Description of procedure: The patient was taken to the OR, transferred to the OR table. They were given a spinal anesthetic. Ancef was given IV preoperatively. Tranexamic acid was given IV preoperatively. Well-padded tourniquet was applied to the upper thigh of the operative leg. Nonoperative leg had a SYLVAIN hose and SCD on throughout. Operative limb was prepped padded and draped in usual orthopedic sterile fashion for the procedure. We began by injecting the pain relieving solution in the anterior superior aspect of the knee region. The limb was exsanguinated, and the tourniquet was applied to 250 mmHg. Made a midline incision through skin, subcutaneous tissue, bringing down us on the extensor mechanism. Medial parapatellar arthrotomy was carried out. Straw-colored joint fluid was evacuate d. We raised a sleeve of tissue off the upper medial tibia. Resected some of the infrapatellar fat pad. We remove degenerative medial and lateral meniscus. Removed bone spurs from about the joint. We removed tissue off the anterior aspect of the distal femur. Patella was translated laterally and/or everted as needed throughout the procedure. ACL was resected. PCL was preserved. Collateral ligaments were preserved. Physician placed the retractors and home care assistant held retractors protecting above ligaments throughout the procedure. Cartilage removed from the distal femur and upper tibia at appropriate location for system. Custom cutting guide placed on distal femur for distal resection. Cut carried out. Next cutting block was applied to the front of the femur. 3? of external rotation . We sized off that block and decided on the appropriate size femur. 4-in-1 cutting block was applied to the distal femur and held in place with 2 pins. Nursery School Teacher again held retractors to protect the soft tissues while surgeon performed anterior, posterior, and chamfer cuts. Bony fragments were removed. PCL retractor was placed and collateral ligament protectors placed by the surgeon, held by the assistance. Tibial premade custom alignment guide was utilized under standard technique going down the shaft of the tibia, to the base of the second metatarsal. Appropriate posterior slope was built in. Nursery School Teacher help insurance agents supervisor alignment. Cutting block was held in place with 3 pins. Again checked the external alignment. Tibial cut carried out with a saw while the home care assistant held retractors protecting the soft tissues about the anterior, medial, lateral, and posterior knee. Bone fragment removed. We then sized off the upper tibia with the help of the home care assistant. We then checked flexion extension gaps finding them to be adequate and equal. Next the distal femoral trial was applied. Tibial tray was allowed to freefloat with a 13 mm insert. Knee was flexed and extended an external alignment guide is utilized. Tibial trial was pinned in place. Drill holes were placed into the distal femoral trial and it was removed. Punch was used on the upper tibial component and that was removed. Bone spurs removed from the posterior medial and posterior lateral aspect of the femur while the home care assistant lifted up on the distal femur and exposed each compartment. Patella was everted and measured and appropriate resection was carried out while the home care assistant held the guide and patella in good position. Patellar remnant measured to be at or just greater than 14 mm. Patella was sized. Clamp was utilized. 3 drill holes were placed through the clamp held by the home care assistant. Trial patella was placed and removed. Bleeding was controlled at the back of the knee with the bovey. Posterior knee soft tissues were carefully injected with pain relieving solution. Tourniquet deflated at 51 minutes. Components were checked and open. Knee was thoroughly irrigated. The bony surfaces cleaned and dried. Tibia, femur, patella press- fit into position. Nursery School Teacher held retractors exposing the bony surfaces of the tibia and femur which were hammered in position. Patella clamped into position. A trial insert applied to the tibia. The final insert was placed on the tibial tray seated down fully. We thoroughly irrigated and debrided the knee. Bleeding controlled with the Bovie. Knee was again thoroughly irrigated. Patella noted to track nicely. We repaired the arthrotomy with a combination of #1 Vicryl and #2 strata fix. We did a mid layer of 1 Vicryl and #1 strata fix running. We then did inverted 2-0 vicryl . We then criselda. Mepilex dressing applied. SYLVAIN hose and SCDs applied. Patient was awoken from their anesthetic, transferred back to their own bed and recovery room in satisfactory condition. Second dose of IV Tranexamic acid was given while closing wound. Patient was admitted, appropriate IV antibiotic to be utilized as well as medication for DVT prevention. Hopeful discharge to rehab tomorrow . Physical therapy will be consulted. This note was generated with [employer] dictation software. It may contain incorrect words, spelling, and punctuation that were not noted in checking the note before signing. Surgical Findings: Posttraumatic arthritis Complications Complications: No Admit VTE Documentation VTE Present on Admission: No VTE Mechan Device Prophylaxis: SCD's and Thigh High SYLVAIN Hose VTE Pharm Prophylaxis ordered?: Yes
[2024-07-28] MEDS: TXA 1000mg in NS100 100ml (IVPB at Closure) 660 MG IV (15:58)
[2024-07-28] MEDS: JPS (Morphine 10mg/ml) OPERA.SITE (15:58)
--- NOTE | 2024-07-28 16:42 | PCM.POST.ANE ---
Anesthesia: Postop Eval I Current Vital Signs Temperature: 98 F Pulse Rate: 92 Blood Pressure: 125/71 Respiratory Rate: 16 Pulse Ox: 97 Oxygen Delivery Method: Room Air Assessment Airway patent: Yes Spontaneous unlabored respirations: Yes Mental status: Asleep nausea: No Vomiting: No Anesthesia Complication: No Fluid Hydration Crystalloid volume administer (ml): 1,200 Total IV fluid infused: 1,200 Progress Note Anesthesia document: Postop Eval 1 completed: Yes
--- NOTE | 2024-07-28 16:50 | RAD_ITS ---
EXAM: XR RIGHT KNEE, 1 OR 2 VIEWS CLINICAL INDICATION: post op -- AP and Lateral xray of operative knee in PACU TECHNIQUE: Frontal and/or lateral views of the right knee. COMPARISON: No relevant prior studies available. FINDINGS: BONES/JOINTS: There is a total knee prosthesis in anatomic alignment. There are skin criselda present over the midline. No acute fracture. Preservation of the joint space. No sclerotic or destructive changes observed. SOFT TISSUES: See above. RAD/Knee 1 or 2 Views IMPRESSION: Total knee prosthesis in anatomic alignment. Electronically Signed: Richar Pollock MD at 17:04 EST ,
--- NOTE | 2024-07-28 16:57 | POSTOPAN2_ITS ---
Anesthesia Postop Eval I Sum Postop Eval Completion status Anesthesia document: Postop Eval 1 completed: Yes Anesthesia Postop Eval I Summary Anesthesia Postop Eval I Summary: Anesthesia Postop Eval I: Assessment Summary Airway patent Yes 07/28/24 16:43 SCHOOL BUS OPERATOR.[email or web address] Spontaneous unlabored Yes 07/28/24 16:43 SCHOOL BUS OPERATOR.RADHA respirations Mental status Asleep 07/28/24 16:43 SCHOOL BUS OPERATOR.[email or web address] nausea No 07/28/24 16:43 SCHOOL BUS OPERATOR.JUANYOBKirk Vomiting No 07/28/24 16:43 SCHOOL BUS OPERATOR.JUANYOBKirk Anesthesia Postop Eval I: Fluid Summary Crystalloid volume administer 1,200 07/28/24 16:43 SCHOOL BUS OPERATOR.JUANYOBY (ml) Colloids volume administered ( ml) Blood Product volume administered (ml) Total IV fluid infused 1,200 07/28/24 16:43 SCHOOL BUS OPERATOR.RADHA Anesthesia Postop Eval I: Summary Notes Anesthesia Complication No 07/28/24 16:43 SCHOOL BUS OPERATOR.RADHA Anesthesia Complication Comment: Post-operative progress note Anesthesia: Postop Eval II Evaluation Mental status: Awake Pain Level: 0 nausea: No Vomiting: No
--- NOTE | 2024-07-28 16:57 | PCM.POSTANE2 ---
Anesthesia Postop Eval I Sum Postop Eval Completion status Anesthesia document: Postop Eval 1 completed: Yes Anesthesia Postop Eval I Summary Anesthesia Postop Eval I Summary: Anesthesia Postop Eval I: Assessment Summary Airway patent Yes 07/28/24 16:43 MEMBERSHIP SECRETARY.[email or web address] Spontaneous unlabored Yes 07/28/24 16:43 MEMBERSHIP SECRETARY.RADHA respirations Mental status Asleep 07/28/24 16:43 MEMBERSHIP SECRETARY.[email or web address] nausea No 07/28/24 16:43 MEMBERSHIP SECRETARY.JUANYOBKirk Vomiting No 07/28/24 16:43 MEMBERSHIP SECRETARY.JUANYOBKirk Anesthesia Postop Eval I: Fluid Summary Crystalloid volume administer 1,200 07/28/24 16:43 MEMBERSHIP SECRETARY.JUANYOBY (ml) Colloids volume administered ( ml) Blood Product volume administered (ml) Total IV fluid infused 1,200 07/28/24 16:43 MEMBERSHIP SECRETARY.RADHA Anesthesia Postop Eval I: Summary Notes Anesthesia Complication No 07/28/24 16:43 MEMBERSHIP SECRETARY.RADHA Anesthesia Complication Comment: Post-operative progress note Anesthesia: Postop Eval II Evaluation Mental status: Awake Pain Level: 0 nausea: No Vomiting: No
[2024-07-28] MEDS: oxyCODONE 5 MG Tablet PO (21:57)
[2024-07-28] MEDS: Senna/Docusate Sodium 1 Tablet 2 TABLET PO (21:57)
[2024-07-28] MEDS: Cefazolin 1 GM/50 ML BAG IV (21:57)
[2024-07-29 01:43] VITALS: BP 133/68; PULSE 80; RESP 16; TEMP 36.6; O2SAT 97
[2024-07-29] MEDS: oxyCODONE 5 MG Tablet PO ×3 (02:56→12:22)
[2024-07-29] MEDS: Acetaminophen 500 MG Tablet 1000 MG PO ×2 (06:42→14:13)
[2024-07-29] MEDS: Cefazolin 1 GM/50 ML BAG IV (06:43)
[2024-07-29 06:49] VITALS: BP 130/75; PULSE 81; RESP 16; TEMP 36.6; O2SAT 98
[2024-07-29 08:36] VITALS: BP 157/81; PULSE 78; RESP 18; TEMP 36.6; O2SAT 98
[2024-07-29] MEDS: Aspirin 81 MG TAB.CHEW PO (10:49)
[2024-07-29] MEDS: Senna/Docusate Sodium 1 Tablet 2 TABLET PO (10:49)
--- NOTE | 2024-07-29 11:07 | CASEMGMT ---
Addendum entered by Kiesha Patricio 07/29/24 12:09: TC to [facility], spoke to Darío, he is aware that pt would like meds delivered to the room. Original Note: LAURA ORTEGA Assessment: Face to Face with pt for initial transition planning/care coordination assessment. LAURA ORTEGA introduced self and role at [facility], pt voices understanding and consents to assessment. Pt is A&O x4 and answers all questions appropriately at this time. Pt sitting up in chair in no distress. Care providers, pharmacy, and demographics verified/updated. Admitting Dx: TKR Strata Score: 1 PCP:Ron Specialists:Yusra Sexton Preferred Pharmacy: [facility] Insurance: MMO Prescription Benefit: yes LNOK: Abigail Aguilera, Living Arrangements: Pt lives with in a single story home with 3 steps with a rail. 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 Pt denies concerns at home. Transportation: Pt drives self and denies concerns with transportation. Pt will transport him until he can drive again. DME:shower chair, cane, [facility] HHC/SNF: Denies hx of Pt states no concerns with going home at time of dc. Pt has outpt therapy set up at [facility] on Thursday. Pt states no further concerns/needs. CM to follow. Advised pt to ask CM if any further questions/concerns/needs arise, voices understanding. Pt Goal: Home with outpt therapy Plan: Home with outpt therapy Earline SANCHEZ CM
--- NOTE | 2024-07-29 11:55 | PCM.PN.ORT ---
Subjective Subjective Patient is postop day #1 following a right total knee arthroplasty no adverse events overnight. Pain in the right knee has been well-controlled physical therapy has been going well. No chest pain shortness of breath dizziness or calf pain seems to be doing well overall is anticipating a discharge to home later today. Objective Data Objective Data Inspection of right knee is with intact waterproof dressing without active drainage erythema warmth or signs of infection patient is able to extend knee lacking a couple degrees of extension with flexion to approximately 95 degrees negative Joseluis bilaterally without signs of DVT full range of motion bilateral ankles against gravity patient able to actively plantar and dorsiflex bilateral ankles against resistance sensation intact light touch pedal pulses present equal bilaterally neurovascularly intact Vital Signs: Vital Signs Temp Pulse Resp BP Pulse Ox O2 Del Method O2 Flow Rate 97.8 F 78 18 157/81 H 98 Room Air 2 07/29/24 08:36 07/29/24 08:36 07/29/24 08:36 07/29/24 08:36 07/29/24 08:36 07/29/24 08:36 07/28/24 20:05 Oxygen Flow Rate (L/min) 2 Oxygen Delivery Method Room Air Weight: 116.6 kg Body Mass Index (BMI) 33.0 Intake & Output: Intake and Output for Last 24 Hours 07/27/24 07/28/24 07/29/24 23:59 23:59 23:59 Intake Total 442 / 442 1262 / 1262 Balance 442 / 442 1262 / 1262 Lab / Micro Data 07/12/24 06:58 07/12/24 06:58 Labs: Laboratory Results - last 24 hr 07/28/24 12:08: POC Glucose 62 L Micro: Microbiology 07/12/24 06:58 Swab (Method) Nasal Screen MRSA/MSSA - Final Radiography Diagnostic Testing: Radiology Impression Knee X-Ray 07/28/24 16:50 IMPRESSION: Total knee prosthesis in anatomic alignment. Electronically Signed: Richar Pollock MD at 17:04 EST , Assessment & Plan Assessment/Plan (1) Post-traumatic osteoarthritis of right knee: PLAN: 1 status post right total knee arthroplasty postoperative day #1 2 continue oxycodone as needed for pain control this will be faxed to patient's pharmacy for continued use as needed 3 begin PT/OT weightbearing as tolerated right lower extremity with a walker. Patient is scheduled for outpatient physical therapy this coming Thursday already has an appointment 4 DVT prophylaxis bilateral teds SCDs aspirin 81 mg twice daily for 1 month postoperative denies history of DVT or pulmonary embolism 5 encourage incentive spirometry 6 orthopedically stable okay for discharge to home when having adequate pain control and doing well with physical therapy plan for follow-up 2 weeks postoperative contact us sooner if having any problems.
--- NOTE | 2024-07-29 12:02 | PCM.DC ---
Discharge Instructions Diet Discharge Diet: 1800 Calorie Control Diet DC O2, CPAP, BIPAP needs Home O2 Discharge instructions: No Dressing / Incision Discharge Activity: May Not Drive (while taking narcotic pain medications.) and Use Walker May shower in (days): 2 (only if incision is dry and without drainage. Do NOT soak/submerge in tub/pool/waterman/stream/hot tub.) Ice area for (Minutes): 20 (Every hour as needed for pain and swelling) Weight Bearing Status: Weight bearing as tolerated Keep extremity elevated above heart level: Operative Extremity Additional Activity Instructions:: Wear elastic stockings for 2 weeks after your surgery. Dressing / Incision Call your doctor if your incision/area has: Continuous Slow Oozing, Sudden Increased Bleeding, Increased Pain/ Swelling, Increased Redness and Foul Smelling Discharge Call your doctor if you observe: Fever of 101 or Higher, Shortness of breath, Chest pain and Calf discomfort Remove Dressing in: 5 days Cleanse incision/area with: Soap & Water Additional Dressing/Incision Instructions:: See postoperative orthopedic pink sheet Follow Up Care Please Follow Up With: Carmen Meade PA When: November 28, 2020 2:15 PM [facility] ([place]) Test Results: Test results from this visit will be discussed in further detail at your follow-up appointment, if applicable. Discharge Plan Admission Admit Date/Time: 07/28/24 14:14 Attending Provider: Bruno Sexton Primary Care Provider: Armani Velasquez Discharge Orders/Prescriptions Prescriptions: New acetaminophen 500 mg Tablet 1,000 mg PO Q8 Qty: 0 0RF aspirin 81 mg Tablet,Chewable 81 mg PO BID Qty: 0 0RF celecoxib 200 mg Capsule 200 mg PO BID Qty: 0 0RF sennosides-docusate sodium [Stimulant Laxative Plus] 8.6-50 mg Tablet 2 tab PO BID Qty: 0 0RF oxycodone 5 mg Tablet 5 - 10 mg PO Q4H PRN PRN (Reason: Pain Score 4-10) Qty: 0 0RF Discontinued ibuprofen [IBU] 400 mg tablet 400 mg PO Q8H PRN (Reason: pain) SIMPLY FRUIT 2 cap PO DAILY SIMPLY VEGETABLE 2 cap PO DAILY acetaminophen 500 MG tablet 1,000 mg PO Q8H PRN (Reason: pain) Other Ambulatory Orders: 12 Lead EKG (Routine) Timeframe: 20240712 Location: None Selected Ordered By: Dr. Bruno Sexton Chest PA and Lateral (Routine) Timeframe: 20240712 Facility: [facility] - Location: [facility] Ordered By: Dr. Bruno Sexton Referrals / Follow Up: Armani Velasquez MD [Primary Care Provider] - Disposition Disposition (needs filled in before D/C Order can be placed): Home, Self Care
[2024-07-29 12:16] VITALS: BP 131/68; PULSE 75; RESP 18; TEMP 36.6; O2SAT 98
--- NOTE | 2024-07-29 16:00 | NURSING ---
went over discharge instructions again with patient and as she arrived.
== END 2024-07-29 16:19 | disposition home or self-care (01) ==
LOC: SDC 17:31 → MS3 17:31
PROVIDERS: Anesthesiology; Admitting Provider Orthopaedic Surgery; PCP Family Medicine; Referring Provider Orthopaedic Surgery; Visit Provider Orthopaedic Surgery
PROC: (CPT 27447; principal; 2024-07-28 13:05)
DX: M17.31 Unilateral post-traumatic osteoarthritis, right knee (principal); R06.02 Shortness of breath; Z79.899 Other long term (current) drug therapy
CPT/HCPCS: 27447; 01402; 64447